=== PATIENT | male | born 1935 | race Two or more races ===

== ENCOUNTER 2016-09-08 13:15 | Inpatient (IN) | payer OTHER ==
[~2016-09-08] VITALS: Ht 172.7 cm; Wt 88.2 kg
[2016-09-08 16:43] LABS: HEMATOCRIT 33.1 % (38.0-50.0); MCH 32.3 PG (29.0-34.0); MCHC 32.6 G/DL (30.0-36.0); MCV 99.1 FL (86-99); MEAN PLAT.VOLUME 9.8 uM^3 (9.0-12.4); PLATELET COUNT 90 K/uL (156-360); RBC DIS.WIDTH-CV 18.9 % (11.8-14.6); RBC DIS.WIDTH-SD 58.4 % (39-53); RED BLOOD COUNT 3.34 M/uL (4.00-5.50)
[2016-09-08 16:52] LABS: CHLORIDE 106 mEq/L (99-109); POTASSIUM 4.1 mEq/L (3.7-5.4); SODIUM 135 mEq/L (136-147)
[2016-09-08 16:54] LABS: GLUCOSE 97 mg/dL (70-99)
[2016-09-08 16:55] LABS: EOSINOPHIL (%) 1.6 % (0-5); EOSINOPHIL COUNT 0.1 K/uL (0-0.3); IMMATURE GRANULOCYTE (%) 0.3 % (0.0-0.7); IMMATURE GRANULOCYTE COUNT 0.3 K/uL; LYMPHOCYTE COUNT 1.2 K/uL (1.0-2.8); MONOCYTE (%) 4.2 % (3-12); MONOCYTE COUNT 0.4 K/uL (0-0.8); NEUTROPHIL (%) 80.2 % (45-76); NEUTROPHIL COUNT 7.2 K/uL (1.8-6.4)
[2016-09-08 16:56] LABS: ANION GAP 9 MEQ/L (2-14)
[2016-09-08 16:58] LABS: GFR ESTIMATE (CALCULATED) > 59 mL/min/
[2016-09-08 16:59] LABS: UREA NITROGEN (BUN) 19 mg/dL (9-23)
[2016-09-08 17:27] LABS: COLOR AMBER ((YELLOW))
[2016-09-08 17:28] LABS: ADD MIUA? YES; BILIRUBIN NEGATIVE; BLOOD LARGE; GLUCOSE (STRIP) NEGATIVE; KETONES NEGATIVE; LEUKOCYTES LARGE; NITRITE NEGATIVE; PROTEIN (STRIP) 300; UROBILINOGEN 0.2 MG/DL (0.2-1.0)
[2016-09-08 17:41] LABS: BACTERIA 4+; CASTS NONE SEEN /LPF; EPITHELIAL CELLS NONE SEEN; MUCUS NONE SEEN; RED BLOOD CELLS TNTC /HPF (0-5); UCUL ADDED? YES; WHITE BLOOD CELLS TNTC /HPF (0-5)
[2016-09-08 17:42] LABS: CRYSTALS NONE SEEN
[2016-09-08] MEDS ORDERED: LO-DOSE ASPIRIN81 M2 PO (19:55)
[2016-09-08] MEDS ORDERED: ATORVASTATIN CA20 MG PO (19:55)
[2016-09-08] MEDS ORDERED: LATANOPROST2.5 ML BOTH EYES (19:56)
[2016-09-08] MEDS ORDERED: FOLIC ACID1 MG PO (19:56)
[2016-09-08] MEDS ORDERED: ERGOCALCIF50000 UNIT PO (19:56)
[2016-09-08] MEDS ORDERED: LOSARTAN POTAS100 MG PO (19:57)
[2016-09-08] MEDS ORDERED: ONE-A-DAY ESSE1 EAC1 PO (19:57)
[2016-09-08] MEDS ORDERED: METHOTREXATE2.5 MG PO (19:57)
[2016-09-08] MEDS ORDERED: TAMSULOSIN HCL0.4 MG PO (19:58)
[2016-09-08] MEDS ORDERED: SYNTHROID25 MCG PO (19:58)
[2016-09-08] MEDS ORDERED: CARVEDILOL6.25 MG PO (19:58)
[2016-09-08] MEDS ORDERED: FERREX 150150 MG PO (19:59)
[2016-09-08] MEDS ORDERED: TYLENOL EXTRA500 MG PO (19:59)
[2016-09-08] MEDS ORDERED: TRUSOPT5 ML BOTH EYES (19:59)
[2016-09-08] MEDS ORDERED: PHILLIPS'400 MG/5 M PO (20:00)
[2016-09-08] MEDS ORDERED: DULCOLAX10 MG PR (20:00)
[2016-09-08] MEDS ORDERED: MIRALAX255 GM PO (20:01)
[2016-09-08 20:46] LABS: C DIFF TOXIN NEGATIVE (NEGATIVE)
[2016-09-08 20:48] LABS: PROBE CHECK PASS; SPECIMEN PROCESSING CONTROL PASS
[2016-09-09 01:43] VITALS: BP 96/50
[2016-09-09 04:00] VITALS: BP 112/60
[2016-09-09 05:47] LABS: HEMATOCRIT 30.7 % (38.0-50.0); MCH 31.5 PG (29.0-34.0); MCHC 31.6 G/DL (30.0-36.0); MCV 99.7 FL (86-99); MEAN PLAT.VOLUME 10.4 uM^3 (9.0-12.4); PLATELET COUNT 89 K/uL (156-360); RBC DIS.WIDTH-CV 19.3 % (11.8-14.6); RBC DIS.WIDTH-SD 64.3 % (39-53); RED BLOOD COUNT 3.08 M/uL (4.00-5.50); WHITE BLOOD COUNT 7.7 K/uL (4.1-10.2)
[2016-09-09 06:14] LABS: ANION GAP 7 MEQ/L (2-14); CHLORIDE 110 MEQ/L (99-109); GFR ESTIMATE (CALCULATED) > 59 mL/min/; GLUCOSE 87 mg/dL (70-99); POTASSIUM 3.8 MEQ/L (3.7-5.4); SAMPLE HEMOLYSIS CHECK 0; SAMPLE ICTERIC CHECK 0; SAMPLE LIPEMIA CHECK 0; SODIUM 139 MEQ/L (136-147); UREA NITROGEN (BUN) 18 mg/dL (9-23)
[2016-09-09 06:43] LABS: EOSINOPHIL (%) 2.2 % (0-5); EOSINOPHIL COUNT 0.2 K/uL (0-0.3); IMMATURE GRANULOCYTE (%) 0.3 % (0.0-0.7); LYMPHOCYTE COUNT 1.4 K/uL (1.0-2.8); MONOCYTE (%) 3.6 % (3-12); MONOCYTE COUNT 0.3 K/uL (0-0.8); NEUTROPHIL (%) 75.9 % (45-76); NEUTROPHIL COUNT 5.8 K/uL (1.8-6.4)
[2016-09-09 07:44] LABS: HEMATOLOGY COMMENT 1 SMEAR COMPATIBLE; USER ID STC
[2016-09-09 08:49] VITALS: BP 116/73
[2016-09-09 12:08] VITALS: BP 108/62
[2016-09-09 16:33] VITALS: BP 110/67
[2016-09-09 21:15] VITALS: BP 174/72
[2016-09-10 00:13] VITALS: BP 131/64
[2016-09-10 04:19] VITALS: BP 138/80
[2016-09-10 08:16] VITALS: BP 185/82
[2016-09-10 11:30] VITALS: BP 117/56
[2016-09-10 16:30] VITALS: BP 174/89
[2016-09-10 19:33] VITALS: BP 175/86
[2016-09-11 00:04] VITALS: BP 168/78
[2016-09-11 04:00] VITALS: BP 108/54
[2016-09-11 07:25] VITALS: BP 132/61
[2016-09-11 16:18] VITALS: BP 136/65
[2016-09-11 19:59] VITALS: BP 166/73
[2016-09-12 00:08] VITALS: BP 179/79
[2016-09-12 04:13] VITALS: BP 154/75
[2016-09-12 07:57] VITALS: BP 173/73
[2016-09-12 16:43] VITALS: BP 169/70
[2016-09-12 19:34] VITALS: BP 129/79
[2016-09-12 23:39] VITALS: BP 128/58
[2016-09-13 03:33] VITALS: BP 133/73
[2016-09-13 08:00] VITALS: BP 148/69
[2016-09-13 12:00] VITALS: BP 102/57
[2016-09-13 16:00] VITALS: BP 167/74
[2016-09-13 21:11] VITALS: BP 177/84
[2016-09-13 23:37] VITALS: BP 186/93
[2016-09-14 07:12] LABS: HEMATOCRIT 35.2 % (38.0-50.0); MCH 32.1 PG (29.0-34.0); MCHC 32.1 G/DL (30.0-36.0); RBC DIS.WIDTH-CV 18.2 % (11.8-14.6); RBC DIS.WIDTH-SD 65.3 % (39-53); RED BLOOD COUNT 3.52 M/uL (4.00-5.50)
[2016-09-14 07:18] LABS: MEAN PLAT.VOLUME 10.6 uM^3 (9.0-12.4); PLATELET COUNT 179 K/uL (156-360)
[2016-09-14 07:30] LABS: ANION GAP 10 MEQ/L (2-14); CHLORIDE 108 MEQ/L (99-109); GFR ESTIMATE (CALCULATED) > 59 mL/min/; GLUCOSE 138 mg/dL (70-99); POTASSIUM 4.2 MEQ/L (3.7-5.4); SAMPLE HEMOLYSIS CHECK 0; SAMPLE ICTERIC CHECK 0; SAMPLE LIPEMIA CHECK 0; SODIUM 143 MEQ/L (136-147); UREA NITROGEN (BUN) 25 mg/dL (9-23)
[2016-09-14 08:46] VITALS: BP 160/74
[2016-09-14] MEDS ORDERED: CIPRO500 MG PO (14:01)
[2016-09-14] MEDS ORDERED: ATORVASTATIN CA20 MG PO (14:01)
== END 2016-09-14 17:20 | DRG 690 ==
LOC: EME 13:15 → EDOF 20:41 → 3EAST 20:41
PROVIDERS: Emergency Medicine; Hospitalist; Internal Medicine
DX: N39.0 Urinary tract infection, site not specified (principal); L02.215 Cutaneous abscess of perineum; N36.0 Urethral fistula; E11.9 Type 2 diabetes mellitus without complications; I10 Essential (primary) hypertension; I48.0 Paroxysmal atrial fibrillation; E03.9 Hypothyroidism, unspecified; D69.6 Thrombocytopenia, unspecified; D53.9 Nutritional anemia, unspecified; R26.9 Unspecified abnormalities of gait and mobility; M06.9 Rheumatoid arthritis, unspecified; N28.1 Cyst of kidney, acquired; K57.90 Diverticulosis of intestine, part unspecified, without perforation or abscess without bleeding; E78.00 Pure hypercholesterolemia, unspecified; Z85.46 Personal history of malignant neoplasm of prostate; Z66 Do not resuscitate; R06.2 Wheezing
CPT/HCPCS: 71010; 74177; 80048; 81003; 83605; 85025; 85027; 87040; 87077; 87086; 87186; 87493; 93306; 94640; 94640 76; 94760; 99202; 99281; 99285; G0103; J0696; J1644; J1940; J7030; J7050; J7512; J8610

== ENCOUNTER 2016-10-01 08:50 | Inpatient (IN) | payer OTHER ==
[~2016-10-01] VITALS: Ht 175.3 cm; Wt 85.7 kg
[~2016-10-01 08:50] MED LIST: ATORVASTATIN CA20 MG PO; CARVEDILOL6.25 MG PO; CIPRO500 MG PO; DULCOLAX10 MG PR; ERGOCALCIF50000 UNIT PO; FERREX 150150 MG PO; FOLIC ACID1 MG PO; LATANOPROST2.5 ML BOTH EYES; LO-DOSE ASPIRIN81 M2 PO; LOSARTAN POTAS100 MG PO; METHOTREXATE2.5 MG PO; MIRALAX255 GM PO; ONE-A-DAY ESSE1 EAC1 PO; PHILLIPS'400 MG/5 M PO; SYNTHROID25 MCG PO; TAMSULOSIN HCL0.4 MG PO; TRUSOPT5 ML BOTH EYES; TYLENOL EXTRA500 MG PO
[2016-10-01 09:22] VITALS: BP 125/69
[2016-10-01 12:07] LABS: METH RESISTANT S AUREUS PCR POSITIVE (NEGATIVE)
[2016-10-01 12:08] LABS: PROBE CHECK PASS
[2016-10-01 16:44] VITALS: BP 140/82
[2016-10-01 21:00] LABS: POINT-OF-CARE METER ID UU13113725
[2016-10-01 22:26] VITALS: BP 166/75
[2016-10-02 08:04] VITALS: BP 148/75
[2016-10-02 11:27] VITALS: BP 114/69
[2016-10-02 11:50] LABS: ANION GAP 9 MEQ/L (2-14); CHLORIDE 108 MEQ/L (99-109); GFR ESTIMATE (CALCULATED) > 59 mL/min/; GLUCOSE 192 mg/dL (70-99); POTASSIUM 4.2 MEQ/L (3.7-5.4); SAMPLE HEMOLYSIS CHECK 0; SAMPLE ICTERIC CHECK 0; SAMPLE LIPEMIA CHECK 0; SODIUM 137 MEQ/L (136-147); UREA NITROGEN (BUN) 21 mg/dL (9-23)
[2016-10-02 11:51] LABS: HEMATOCRIT 36.2 % (38.0-50.0); MCH 33.5 PG (29.0-34.0); MCV 104.6 FL (86-99); MEAN PLAT.VOLUME 10.6 uM^3 (9.0-12.4); PLATELET COUNT 131 K/uL (156-360); RBC DIS.WIDTH-CV 21.3 % (11.8-14.6); RBC DIS.WIDTH-SD 79.1 % (39-53); RED BLOOD COUNT 3.46 M/uL (4.00-5.50)
[2016-10-02 11:52] LABS: WHITE BLOOD COUNT 8.7 K/uL (4.1-10.2)
[2016-10-02 15:46] VITALS: BP 134/65
[2016-10-02 23:07] VITALS: BP 135/63
[2016-10-03 08:11] VITALS: BP 183/90
[2016-10-03] MEDS ORDERED: DOCUSATE SODIU100 MG PO (08:11)
[2016-10-03] MEDS ORDERED: ENDOCET 5-3251 EACH PO (08:11)
[2016-10-03 14:52] LABS: POINT-OF-CARE METER ID UU13113725
== END 2016-10-03 16:25 | DRG 983 ==
LOC: 5EAST 08:50 → 2SOUTH 08:50 → 5EAST 16:07
PROVIDERS: Surgery
DX: N36.0 Urethral fistula (principal); I10 Essential (primary) hypertension; E03.9 Hypothyroidism, unspecified; E11.9 Type 2 diabetes mellitus without complications; Z86.79 Personal history of other diseases of the circulatory system
CPT/HCPCS: 80048; 82948; 85027; 87641; J0690; J1170; J1815; J2250; J2405; J2710; J3010; J8610

== ENCOUNTER 2016-10-04 08:13 | Emergency (ER) | payer OTHER ==
[~2016-10-04] VITALS: Ht 172.7 cm; Wt 90.3 kg
[~2016-10-04 08:13] MED LIST changes: +DOCUSATE SODIU100 MG PO; +ENDOCET 5-3251 EACH PO
[2016-10-04 09:17] LABS: EOSINOPHIL (%) 3.9 % (0-5); EOSINOPHIL COUNT 0.2 K/uL (0-0.3); HEMATOCRIT 33.8 % (38.0-50.0); IMMATURE GRANULOCYTE (%) 0.4 % (0.0-0.7); IMMATURE GRANULOCYTE COUNT 0.2 K/uL; MCH 33.5 PG (29.0-34.0); MEAN PLAT.VOLUME 9.6 uM^3 (9.0-12.4); MONOCYTE (%) 12.5 % (3-12); MONOCYTE COUNT 0.6 K/uL (0-0.8); NEUTROPHIL (%) 61.3 % (45-76); NEUTROPHIL COUNT 2.8 K/uL (1.8-6.4); PLATELET COUNT 145 K/uL (156-360); RBC DIS.WIDTH-CV 21.2 % (11.8-14.6); RBC DIS.WIDTH-SD 75.1 % (39-53); RED BLOOD COUNT 3.22 M/uL (4.00-5.50)
[2016-10-04 09:18] LABS: WHITE BLOOD COUNT 4.6 K/uL (4.1-10.2)
[2016-10-04 09:26] LABS: CHLORIDE 113 mEq/L (99-109); POTASSIUM 4.2 mEq/L (3.7-5.4); SODIUM 142 mEq/L (136-147)
[2016-10-04 09:29] LABS: ANION GAP 4 MEQ/L (2-14)
[2016-10-04 09:31] LABS: GFR ESTIMATE (CALCULATED) > 59 mL/min/
[2016-10-04 09:32] LABS: UREA NITROGEN (BUN) 16 mg/dL (9-23)
[2016-10-04 09:33] LABS: GLUCOSE 107 mg/dL (70-99)
[2016-10-04 12:11] VITALS: BP 149/73
== END 2016-10-04 12:12 ==
LOC: EME 08:13
PROVIDERS: Physician Assistant
DX: Z48.815 Encounter for surgical aftercare following surgery on the digestive system (principal); K94.01 Colostomy hemorrhage; E11.9 Type 2 diabetes mellitus without complications; Z87.442 Personal history of urinary calculi; Z85.46 Personal history of malignant neoplasm of prostate
CPT/HCPCS: 80048; 85025; 99281; 99284

== ENCOUNTER 2016-11-01 17:36 | Emergency (ER) | payer OTHER ==
[~2016-11-01] VITALS: Ht 172.7 cm; Wt 84.0 kg
[2016-11-01 20:55] VITALS: BP 143/79
== END 2016-11-01 20:57 ==
LOC: EME 17:36
PROC: 0T9B70Z Drainage of Bladder with Drainage Device, Via Natural or Artificial Opening (ICD-10-PCS; principal; 2016-11-01)
DX: T83.020A Displacement of cystostomy catheter, initial encounter (principal)
CPT/HCPCS: 99281; 99283

== ENCOUNTER 2017-04-02 16:57 | Emergency (ER) | payer OTHER ==
[~2017-04-02] VITALS: Ht 177.8 cm; Wt 97.0 kg
[2017-04-02 18:30] LABS: ADD MIUA? YES; BILIRUBIN NEGATIVE; BLOOD LARGE; COLOR YELLOW ((YELLOW)); GLUCOSE (STRIP) NEGATIVE; KETONES NEGATIVE; LEUKOCYTES LARGE; NITRITE NEGATIVE; PROTEIN (STRIP) 100; SPECIFIC GRAVITY 1.014 (1.000-1.030); UROBILINOGEN 0.2 MG/DL (0.2-1.0)
[2017-04-02 18:47] LABS: BACTERIA 1+ /HPF; EPITHELIAL CELLS 1+ /HPF; MUCUS NONE SEEN /LPF; RED BLOOD CELLS TNTC /HPF (0-5); WHITE BLOOD CELLS TNTC /HPF (0-5)
[2017-04-02 20:28] VITALS: BP 134/78
== END 2017-04-02 20:32 ==
LOC: EME 16:57
PROVIDERS: Physician Assistant
PROC: 0T2BX0Z Change Drainage Device in Bladder, External Approach (ICD-10-PCS; principal; 2017-04-02)
DX: T83.020A Displacement of cystostomy catheter, initial encounter (principal); Y84.6 Urinary catheterization as the cause of abnormal reaction of the patient, or of later complication, without mention of misadventure at the time of the procedure; I10 Essential (primary) hypertension; I48.91 Unspecified atrial fibrillation; E11.9 Type 2 diabetes mellitus without complications; E78.5 Hyperlipidemia, unspecified; K21.9 Gastro-esophageal reflux disease without esophagitis; J44.9 Chronic obstructive pulmonary disease, unspecified; M19.90 Unspecified osteoarthritis, unspecified site; M48.00 Spinal stenosis, site unspecified; Z85.46 Personal history of malignant neoplasm of prostate; Z93.3 Colostomy status; Z87.442 Personal history of urinary calculi; Z90.49 Acquired absence of other specified parts of digestive tract; Z79.82 Long term (current) use of aspirin
CPT/HCPCS: 81003; 99281; 99285

== ENCOUNTER 2017-07-18 00:30 | Emergency (ER) | payer OTHER ==
[~2017-07-18] VITALS: Ht 172.7 cm; Wt 105.4 kg
[2017-07-18 05:22] VITALS: BP 136/71
== END 2017-07-18 05:30 ==
LOC: EME 00:30
PROC: 0T2BX0Z Change Drainage Device in Bladder, External Approach (ICD-10-PCS; principal; 2017-07-18)
DX: Z46.6 Encounter for fitting and adjustment of urinary device (principal); N36.0 Urethral fistula; R33.9 Retention of urine, unspecified; Z87.440 Personal history of urinary (tract) infections; I10 Essential (primary) hypertension; I48.91 Unspecified atrial fibrillation; K21.9 Gastro-esophageal reflux disease without esophagitis; E11.9 Type 2 diabetes mellitus without complications; J44.9 Chronic obstructive pulmonary disease, unspecified; M19.90 Unspecified osteoarthritis, unspecified site; Z85.46 Personal history of malignant neoplasm of prostate; Z93.3 Colostomy status; Z90.49 Acquired absence of other specified parts of digestive tract; Z79.82 Long term (current) use of aspirin; Z87.891 Personal history of nicotine dependence
CPT/HCPCS: 72170; 99281; 99285